=== PATIENT | female | born 1960 | race Caucasian/White ===

== ENCOUNTER → 2019-08-10 | Outpatient (CLI) | payer MEDICAID, SELFPAY ==
--- NOTE | 2019-08-10 20:18 | RAD_ITS ---
STUDY: X-RAY - CERVICAL SPINE REASON FOR EXAM: Female, 58 years old. FIBROMALAGIA. HX OF HERNIATED L5-S1 TECHNIQUE: 5 view(s) of the cervical spine were obtained. COMPARISON: None FINDINGS: Normal anterior atlantoaxial articulation. Normal odontoid process. Normal cervical lordosis. Normal vertebral bodies and endplates. Normal disc space heights. Normal visualized intervertebral neuroforamina. The soft tissue structures are unremarkable. RAD/Cerv Spine 4 or 5 Views IMPRESSION: Normal x-ray examination of the visualized cervical spine. Electronically Signed: Anamika Rodriguez, at 21:24 EST Tel , Service support ,
--- NOTE | 2019-08-10 20:19 | RAD_ITS ---
STUDY: X-RAY - PELVIS AND BILATERAL HIPS REASON FOR EXAM: Female, 58 years old. FIBROMALAGIA. HX OF HERNIATED L5-S1 TECHNIQUE: AP view of the pelvis.? 2 views of the right hip, and 2 views of the left hip were obtained. COMPARISON: None. FINDINGS: There is a non-specific bowel gas pattern. Normal visualized soft tissue structures. There are multiple calcified phleboliths. Normal bilateral iliac wings, sacroiliac joints and visualized sacrum. Normal bilateral superior and inferior pubic rami. Normal pubic symphysis. Normal bilateral ischial tuberosities. Normal visualized right femoral head. There is osteoarthritic spur formation of the right acetabular rim. There is mild articular joint space narrowing of the right hip. Normal visualized left femoral head. There is osteoarthritic spur formation of the left acetabular rim. There is mild articular joint space narrowing of the left hip. RAD/Hips B/L min 2 views w/ Pelvis IMPRESSION: Mild degenerative changes of the bilateral hips. Electronically Signed: Micheal Ward MD (Brooks) at 18:08 EST , Service support ,
--- NOTE | 2019-08-10 20:19 | RAD_ITS ---
STUDY: X-RAY - THORACIC SPINE REASON FOR EXAM: Female, 58 years old. Fibromyalgia. HX OF HERNIATED L5-S1 TECHNIQUE: 3 view(s) of the thoracic spine were obtained. COMPARISON: None. FINDINGS: Normal kyphosis of the thoracic spine. There is no substantial scoliosis. There is multilevel endplate spondylosis of the thoracic vertebrae. There is multilevel disc space narrowing of the thoracic spine. The soft tissue structures are unremarkable. RAD/Thoracic Spine 3 Views IMPRESSION: Degenerative disc disease and spondylosis. Electronically Signed: Micheal Ward MD (Brooks) at 18:09 EST , Service support ,
--- NOTE | 2019-08-10 20:20 | RAD_ITS ---
STUDY: X-RAY - LUMBAR SPINE REASON FOR EXAM: Female, 58 years old. FIBROMALAGIA. HX OF HERNIATED L5-S1 TECHNIQUE: 5 view(s) of the lumbar spine were obtained. COMPARISON: None FINDINGS: Normal lumbar lordosis. There is no substantial scoliosis. There is a normal alignment of the vertebrae. There is multilevel endplate spondylosis of the lumbar vertebrae. There is multi-level degenerative disc disease with multi-level disc space narrowing. There is no demonstrated fracture. There is no demonstrated spondylolysis of the pars interarticulares. There is atherosclerotic calcification of the abdominal aorta without a demonstrated aneurysm. Cholecystectomy clips are noted. RAD/L/S Spine Min 4 Views IMPRESSION: 1. Mild degenerative changes. Electronically Signed: Micheal Ward MD ([place]) at 18:08 EST , Service support ,
== END | disposition home or self-care (01) ==
LOC: RAD 20:15
PROVIDERS: PCP Nurse Practitioner Family; Referring Provider Anesthesiology; Visit Provider Anesthesiology
DX: M54.2 Cervicalgia (principal); M54.5 Low back pain; M54.6 Pain in thoracic spine; M25.551 Pain in right hip; M25.552 Pain in left hip
CPT/HCPCS: 72050; 72072; 72110; 73521

== ENCOUNTER → 2020-03-10 | Outpatient (CLI) | payer MEDICAID, SELFPAY ==
--- NOTE | 2020-03-10 18:11 | MRI_ITS ---
STUDY: MRI LUMBAR SPINE WITHOUT CONTRAST REASON FOR EXAM: Female, 59 years old. back pain x years into pelvis, back locking up TECHNIQUE: Standardized fat and water weighted pulse sequences were obtained in the sagittal and axial planes. COMPARISON: None FINDINGS: T12-L1: Normal endplates. Normal disc height, hydration and morphology. Normal bilateral facet joints. Normal central canal and bilateral lateral recesses. Normal bilateral intervertebral neural foramina. Normal lumbar lordosis. There is no substantial scoliosis. Normal conus medullaris that terminates at the L1-2: Normal endplates. Normal disc height, hydration and morphology. Normal bilateral facet joints. Normal central canal and bilateral lateral recesses. Normal bilateral intervertebral neural foramina. L2-3: Normal endplates. Normal disc height, hydration and morphology. Normal bilateral facet joints. Normal central canal and bilateral lateral recesses. Normal bilateral intervertebral neural foramina. L3-4: Normal endplates. Normal disc height, hydration and morphology. Normal bilateral facet joints. Normal central canal and bilateral lateral recesses. Normal bilateral intervertebral neural foramina. L4-5: Endplate spondylosis. Small midline disc herniation. Degenerative changes of the bilateral facet joints. Mild narrowing of the central canal and bilateral intervertebral neural foramina. L5-S1: Endplate spondylosis. Decreased disc height and small circumferential disc bulge. Degenerative changes of the bilateral facet joints. Mild narrowing of the central canal and bilateral intervertebral neural foramina. Normal visualized sacral ala. Normal visualized paraspinous soft tissue structures. MRI/Spine Lumbar (Routine) IMPRESSION: L4-5 and L5-S1 degenerative changes, as described above. Electronically Signed: Hazel San, at 14:50 EDT Tel , Service support ,
== END | disposition home or self-care (01) ==
LOC: MRI 17:20
PROVIDERS: PCP Nurse Practitioner Family; Referring Provider Anesthesiology; Visit Provider Anesthesiology
DX: M54.16 Radiculopathy, lumbar region (principal)
CPT/HCPCS: 72148

== ENCOUNTER → 2020-12-26 18:48 | Outpatient (CLI) | payer MEDICAID, SELFPAY ==
--- NOTE | 2020-12-26 19:10 | RAD_ITS ---
STUDY: X-RAY - LEFT KNEE REASON FOR EXAM: Female, 60 years old. PAIN TECHNIQUE: 3 view(s) of the knee. COMPARISON: None. FINDINGS: Normal visualized distal femur. Normal visualized proximal tibia and fibula. Normal proximal tibiofibular articulation. There is mild degenerative arthrosis of the medial femorotibial compartment. There is mild degenerative arthrosis of the lateral femorotibial compartment. There is mild degenerative arthrosis of the patellofemoral articulation. The soft tissue structures are unremarkable. RAD/Knee 4 or More Views IMPRESSION: Degenerative arthrosis. Electronically Signed: Triston La MD at 10:47 EDT Tel , Service support ,
--- NOTE | 2020-12-26 19:10 | RAD_ITS ---
STUDY: X-RAY - RIGHT KNEE REASON FOR EXAM: Female, 60 years old. PAIN SEE LEFT KNEE IMAGES FOR PATELLA VIEW. PHYSICIAN REQUESTED MERCHANT VIEW WHICH IS BOTH PATELLAS DONE TOGETHER. TECHNIQUE: 4 view(s) of the knee. COMPARISON: None. FINDINGS: Normal visualized distal femur. Normal visualized proximal tibia and fibula. Normal proximal tibiofibular articulation. There is moderate degenerative arthrosis of the medial femorotibial compartment with moderate joint space narrowing. There is mild degenerative arthrosis of the lateral femorotibial compartment. There is mild degenerative arthrosis of the patellofemoral articulation. There is a soft tissue prominence in the suprapatellar region suggesting a small volume joint effusion. The soft tissue structures are unremarkable. RAD/Knee 4 or More Views IMPRESSION: Degenerative arthrosis. Electronically Signed: Triston La MD at 10:49 EDT Tel , Service support ,
== END ==
PROVIDERS: PCP Nurse Practitioner Family; Visit Provider Anesthesiology
DX: M25.561 Pain in right knee (principal); M25.562 Pain in left knee
CPT/HCPCS: 73564

== ENCOUNTER 2021-03-27 10:30 | Outpatient (RCR) | payer MEDICAID, SELFPAY ==
--- NOTE | 2021-01-05 12:07 | HP.PTEVAL ---
Patient's Visit Information VINH BEY is a 60 year old F referred to Physical Therapy by Dr. Srini Quintana MD with a diagnosis of Back pain and B knee pain. Date of Evaluation: 01/05/21 Physical Therapist: Reyes Nowak DPT - Visit Plan Frequency: 2x /Week Duration: 4 Weeks Plan: Start with B hip/core strengthening and increasing tolerance to all functional mobility in aquatic setting. Add in lumbar ROM as tolerated. I would like her to start a walking program, but might have to be light due to limited overall tolerance to functional mobility. Stress graded exercises and HEP to patient. - Subjective Pt. is here today for her initial evaluation with diagnosis of back pain and knee pain. Pt. reports having pain for ~2 years, but has been progressively getting worse. She reports being diagnosed with fibromyalgia for about the same time. She was taking Cymbalta, but did not report much change. She reports having increased pain in B hips, B knee and lumbar spine. Pt. increased pain: standing, walking, driving. Decreased: not much. She reports taking Tylenol for pain, but was taking so much that she was having issues internally. She is not taking tramadol, but is only taking the edge. Pt. to see her physician on Tuesday and do injection into lumbar spine then followed by B knees. Pt. has had relief for about 6 weeks with her injections. Pt. reports her normal day is getting up early secondary to pain. She drives people for a living. She life is mostly sitting at this point in time. Pt. reports trying therapy previously. - Pain Lumbar spine Pain Intensity (Out of 10): 9 Pain Intensity Range: 4, 10 B hip Pain Intensity (Out of 10): 7 Pain Intensity Range: 4, 10 B knees Pain Intensity (Out of 10): 8 Pain Intensity Range: 2, 10 - Objective POSTURE: Pt. has general flexed posture. Pt. is over wt. Pt. has wide CRISTIANO in stance, and increased anterior pelvic tilt. PALPATION: Pt. has increased pain with palpation of R knee and R distal HS. NEURO: Pt. reports no N/T currently. She reports increased N/T in her L side of her hip when lying on her R side. ROM: Lumbar spine: flexion min/nil loss increase NW, ext- max loss increase NW, Rotation: mod loss increase NW, SB mod loss increase NW. MMT: RLE: ankle 5/5 throughout; knee- 4/5 increase NW, flexion 4+/5 increase NW; hip: flexion 3/5, abd 3/5, ext 4/5. LLE: ankle 5/5 throughout; knee: ext 4/5, flexion 4/5; hip- flexion 4/5, abd 4/5, ext 4/5. Core strength- poor-. GAIT: Pt. is able to ambulate without AD. She has increased lateral postural sway. She has increased R trunk rotation to increase hip movement. Pt. lacks TKE of R knee in stance. Pt. has antalgic pattern during R stance phase. Pt. has anterior pelvic tilt with increased lumbar lordosis with gait. STAIRS: step to pattern loading LLE only and use of BHR. - Special Tests Lumbar Standing: Flexion - Mechanical Response: No effect Lumbar Standing: Flexion - Symptoms During Testing: Increases Lumbar Standing: Flexion - Symptoms After Testing: No worse Lumbar Standing: Extension - Mechanical Response: No effect Lumbar Standing: Extension - Symptoms During Testing: Increases Lumbar Standing: Extension - Symptoms After Testing: Worse Lumbar Standing: Right Side Glides - Mechanical Response: No effect Lumbar Standing: Right Side [place] - Symptoms During Testing: Increases Lumbar Standing: Right Side [place] - Symptoms After Testing: Worse Lumbar Standing: Left Side [place] - Mechanical Response: No effect Lumbar Standing: Left Side [place] - Symptoms During Testing: Increases Lumbar Standing: Left Side [place] - Symptoms After Testing: Worse - Balance/Special Test Scores Oswestry Low Back Score: 39 - Goals Goal 1:: LTG: Pt. to be I with HEP. Goal Time Frame: 4-6 Weeks Goal 2:: STG: pt. to be able to walk short distances <300' with 0-4/10 pain in B hips, knees and lumbar spine. Goal Time Frame: 2-4 Weeks Goal 3:: LTG: Pt. to ambulate 100'with 0-4/10 in B hips, knees and lumbar spine allowing for increased tolerance with walking in community and shopping. Goal Time Frame: 4-6 Weeks Goal 4:: LTG: Pt. to have increased lumbar spine ROM 25% in all directions 0-4/10 pain. Goal Time Frame: 4-6 Weeks Goal 5:: LTG: Pt. to sleep 6+ hours at one time allowing for increased quality of life. Goal Time Frame: 4-6 Weeks Goal 6:: LTG: Pt. to have increased BLE and core strength increased to at least 4+/5 throughout. Goal Time Frame: 4-6 Weeks - Rehabilitation Potential Physical Therapy Diagnosis: Pt. has signs and symptoms consistent with low back pain and B knee pain with R being worse than L. Pt. has marked hypomobility, weakness, increased pain, difficulty with walking, difficulty doing work related activities. Pt. would benefit from PT to work on strength, ROM, gait progression initially in aquatic setting with focus on progressing tolerance to general daily activities. Rehabilitation Potential: Good - Anticipated Interventions Patient/Client Instruction: Educate patient on: Condition, Plan of Care, Risk Factors, Benefits of Fitness Program For the Purpose of:: To improve decision making, To facilitate caregiver knowledge, To improve self management, To prevent re-injury, To improve ability to perform tasks related to life management Therapeutic Exercise to Include: Strength training, Power training, Coordination, Postural training, Flexibilty training, Gait and locomotor training, In an aquatic setting, Passive ROM, Active ROM, Dynamic Lumbar Stabilization, Gissell Exercises For the Purpose of:: To decrease pain, To decrease swelling/inflammation, To increase ROM, To improve nutrient delivery to tissue, To increase oxygenation perfusion, To improve muscle performance and motor function, To improve ability to perform ADL's, To increase tolerance to activity/condition/position, To improve health of tissue, To decrease soft tissue restriction, To increase flexibility/ROM, To improve endurance, To improve balance Thank you for the opportunity to evaluate your patient. For Medicare and Medicare HMO plans, please review the plan of care and approve it. It will need to be FAXED BACK to us at [phone] for Medicare purposes. For Medicare only, by signing this I certify the plan of care. Please let me know if there are questions or concerns regarding this plan of care. Physician Signature: Date:
--- NOTE | 2021-04-16 09:02 | HP.PTREVAL_ITS ---
Dr. Srini Quintana MD, It has been my pleasure to treat VINH BEY over the last 10 visits for Back pain and B knee pain. Please see the progress note below for an update on the physical therapy plan of care! Subjective: Pt reports bilateral knee pain R> L . She c/o significant swelling in both legs, and states pain is off the charts. Pt reports pain is getting worse, and believes she needs to do pool therapy 3x/ week. She states her LBP has been occurring for about 22 years, her knees have been painful for the past 5 years ever since she had a fall. Objective/Function: STRENGTH: RIGHT: hip: flexion 3+, abduction 4, adduction 4 ,knee: flexion 3+ (limited by pain), extension 4- (limited by pain) LEFT: hip flexion 4-, abduction 4, adduction 4 , knee :flexion 4-, extension 4+. ROM: Right knee AROM: 0-10-90 , PROM 0-100, , LEFT knee AROM 10-0-115, PROM 0- 125. Pt experienced pain during ROM and MMT, but expressed that after ROM she felt some pain relief. Pt expressed her physician recommended her to lose weight to help with pain management, pt continues to demonstrate weakness and lack of ROM and would benefit from further physical therapy to increase ROM and strength as well as education on pain management techniques. Look to increase walking program and graded exercise to increase tolerance to functional daily activities. Plan Plan: We are looking to extend her date limit of visits and alternate pool therapy with land therapy 2x a week for 6 weeks. Balance/Gait/Functional tests - Balance/Special Test Scores Oswestry Low Back Score: 39 Lower Extremity Functional Score: 14 Goals Goal 1:: LTG: Pt. to be I with HEP. Goal Time Frame: 4-6 Weeks Goal Progress: Goal Met Goal 2:: STG: pt. to be able to walk short distances <300' with 0-4/10 pain in B hips, knees and lumbar spine. Goal Time Frame: 2-4 Weeks Goal Progress: Not Progressing Goal 3:: LTG: Pt. to ambulate 100'with 0-4/10 in B hips, knees and lumbar spine allowing for increased tolerance with walking in community and shopping. Goal Time Frame: 4-6 Weeks Goal Progress: Not Progressing Goal 4:: LTG: Pt. to have increased lumbar spine ROM 25% in all directions 0- 4/10 pain. Goal Time Frame: 4-6 Weeks Goal Progress: Not Progressing Goal 5:: LTG: Pt. to sleep 6+ hours at one time allowing for increased quality of life. Goal Time Frame: 4-6 Weeks Goal Progress: Not Progressing Goal 6:: LTG: Pt. to have increased BLE and core strength increased to at least 4+/5 throughout. Goal Time Frame: 4-6 Weeks Goal Progress: Not Progressing Anticipated Interventions Patient/Client Instruction: Educate patient on: Condition, Plan of Care, Risk Factors, Benefits of Fitness Program For the Purpose of:: To improve decision making, To facilitate caregiver knowledge, To improve self management, To prevent re-injury, To improve ability to perform tasks related to life management Therapeutic Exercise to Include: Strength training, Power training, Coordination, Postural training, Flexibilty training, Gait and locomotor training, In an aquatic setting, Passive ROM, Active ROM, Dynamic Lumbar Stabilization, Gissell Exercises For the Purpose of:: To decrease pain, To decrease swelling/inflammation, To increase ROM, To improve nutrient delivery to tissue, To increase oxygenation perfusion, To improve muscle performance and motor function, To improve ability to perform ADL's, To increase tolerance to activity/condition/position, To improve health of tissue, To decrease soft tissue restriction, To increase flexibility/ROM, To improve endurance, To improve balance Manual Therapy Techniques to Include: Mobilization For the Purpose of:: To decrease pain, To increase ROM TENS: Yes Thermo therapy (hot pack): Yes Please do not hesitate to contact me at [phone] by phone or if you have questions or concerns regarding this new plan of care! Sincerely, Reyes Nowak DPT
--- NOTE | 2021-05-19 12:56 | HP.PTDCNRP_ITS ---
VINH BEY was seen in my office for initial evaluation on 01/05/21. The following Plan of Care was established for this patient: Initial Frequency: 2x /Week Initial Duration: 4 Weeks Patient/Client Instruction: Educate patient on: Condition, Plan of Care, Risk Factors, Benefits of Fitness Program For the Purpose of:: To improve decision making, To facilitate caregiver knowledge, To improve self management, To prevent re-injury, To improve ability to perform tasks related to life management Therapeutic Exercise to Include: Strength training, Power training, Coordination, Postural training, Flexibilty training, Gait and locomotor training, In an aquatic setting, Passive ROM, Active ROM, Dynamic Lumbar Stabilization, Gissell Exercises For the Purpose of:: To decrease pain, To decrease swelling/inflammation, To increase ROM, To improve nutrient delivery to tissue, To increase oxygenation perfusion, To improve muscle performance and motor function, To improve ability to perform ADL's, To increase tolerance to activity/condition/position, To improve health of tissue, To decrease soft tissue restriction, To increase flexibility/ROM, To improve endurance, To improve balance Manual Therapy Techniques to Include: Mobilization For the Purpose of:: To decrease pain, To increase ROM TENS: Yes Thermo therapy (hot pack): Yes This patient was last seen in our office 03/27/21. Pertinent comments regarding their Physical therapy will appear below: Pt. was seen in PT in aquatic therapy for her back, leg pain. Pt. was to extend her POC, but has not returned to PT. Pt. will be DC from PT at this point in time. At this point I will be discontinuing this patient from physical therapy. I wou ld be happy to see this patient again in the future if found appropriate by the physician. Thank you! Reyes Nowak, DPT Balance/Gait/Functional tests - Balance/Special Test Scores Oswestry Low Back Score: 39 Lower Extremity Functional Score: 14
== END 2021-03-27 19:00 | disposition home or self-care (01) ==
LOC: PT 10:30
PROVIDERS: PCP Nurse Practitioner Family; Referring Provider Anesthesiology; Visit Provider Anesthesiology
DX: M54.9 Dorsalgia, unspecified (principal); M25.562 Pain in left knee; M25.561 Pain in right knee
CPT/HCPCS: 97113; 97161; 97164

== ENCOUNTER → 2021-05-22 11:19 | Outpatient (CLI) | payer MEDICAID, SELFPAY ==
--- NOTE | 2021-05-22 11:23 | RAD_ITS ---
STUDY: X-RAY - PELVIS AND RIGHT HIP REASON FOR EXAM: Female, 60 years old. Right hip pain. TECHNIQUE: 3 views of the pelvis and hip. COMPARISON: 08/10/2019. FINDINGS: There is a non-specific bowel gas pattern. Phleboliths. Normal bilateral iliac wings, sacroiliac joints and visualized sacrum. Normal bilateral superior and inferior pubic rami. Normal pubic symphysis. Normal bilateral ischial tuberosities. Stable mild medial arthrosis of both hips. RAD/HIP, UNI W/ Pelvis 2-3 Views IMPRESSION: Stable mild medial arthrosis of both hips. No acute finding. Electronically Signed: Jerome Mccain MD at 13:53 EST , Service support ,
== END ==
PROVIDERS: PCP Nurse Practitioner Family; Referring Provider Anesthesiology; Visit Provider Anesthesiology
DX: M16.0 Bilateral primary osteoarthritis of hip (principal)
CPT/HCPCS: 73502

== ENCOUNTER 2021-08-10 08:47 | Outpatient (CLI) | payer MEDICAID, SELFPAY ==
--- NOTE | 2021-08-10 08:48 | MRI_ITS ---
STUDY: MRI RIGHT KNEE REASON FOR EXAM: Female, 60 years old. Bilateral knee pain. TECHNIQUE: Standardized fat and water weighted pulse sequences were obtained in all 3 orthogonal planes. COMPARISON: Radiographs of the right knee dated 12/26/2020. FINDINGS: Complex tear of the body of the medial meniscus with truncation and loss of substance. Extrusion of the remnant of the body and anterior horn of the medial meniscus (coronal series 6 images 8-18). Moderate loss of articular cartilage of the medial femorotibial compartment with reactive subchondral bone marrow edema and osteophyte formation (coronal series 6 images 7-17). Mild MCL sprain (coronal series 6 images 9-12). Normal distal semimembranosus, gracilis and semitendinosus tendons. Normal lateral meniscus. Mild thinning of the articular cartilage of the lateral femorotibial compartment (coronal series 6 images 7-14). Normal lateral femoral condyle and tibial plateau. Normal proximal tibiofibular articulation. Normal lateral collateral (fibular) ligament. Normal popliteus tendon. Normal biceps femoris tendon. Normal anterior cruciate ligament (ACL). Normal posterior cruciate ligament (PCL). Lateral tilt and subluxation of the patella with moderate to marked thinning of the articular cartilage of the patellofemoral compartment with reactive subchondral bone marrow edema, subchondral cyst formation and osteophyte formation (axial series 2 images 10-18). Normal medial and lateral patellar retinaculum. Normal quadriceps tendon. Normal patellar tendon. Normal Hoffa''s fat pad. Joint effusion with medial plica and dissecting popliteal cyst (axial series 2 images 8-21 sagittal series 4 image 19). Prepatellar subcutaneous soft tissue edema (sagittal series 4 images 7-13). The otherwise visualized osseous structures are unremarkable. MRI/Lower Ext Joint Only (Routine) IMPRESSION: Complex tear of the body of the medial meniscus with truncation and loss of substance. Extrusion of the remnant of the body and anterior horn of the medial meniscus. Mild MCL sprain. Mild thinning of the articular cartilage of the lateral femorotibial compartment. Lateral tilt and subluxation of the patella. Moderate to marked thinning of the articular cartilage of the patellofemoral compartment. Marked prepatellar subcutaneous soft tissue edema. Joint effusion with medial plica. Small dissecting popliteal cyst. Electronically Signed: Jerome Mccain MD at 12:48 EST ,
--- NOTE | 2021-08-10 09:04 | MRI_ITS ---
STUDY: MRI LEFT KNEE REASON FOR EXAM: Female, 60 years old. Diffuse knee pain with instability. TECHNIQUE: Standardized fat and water weighted pulse sequences were obtained in all 3 orthogonal planes. COMPARISON: Knee images dated 12/26/2020. FINDINGS: Normal medial meniscus. Mild thinning of the articular cartilage of the medial femorotibial compartment with small osteophytes (coronal series 6 images 8-17). Mild MCL sprain (coronal series 6 image 13). Normal distal semimembranosus, gracilis and semitendinosus tendons. Normal lateral meniscus. Moderate thinning of the articular cartilage of the lateral femorotibial compartment with osteophyte formation (coronal series 6 images 8-15). Normal proximal tibiofibular articulation. Normal lateral collateral (fibular) ligament. Normal popliteus tendon. Normal biceps femoris tendon. Normal anterior cruciate ligament (ACL). Normal posterior cruciate ligament (PCL). Lateral tilt and subluxation of the patella with marked thinning of the articular cartilage of the patellofemoral compartment with reactive subchondral bone marrow edema, subchondral cyst formation and osteophyte formation (axial series 2 images 11-18). Normal medial and lateral patellar retinaculum. Normal quadriceps tendon. Normal patellar tendon. Normal Hoffa''s fat pad. Moderate-sized joint effusion with dissecting popliteal cyst (axial series 2 images 8-22). Prepatellar subcutaneous soft tissue edema (sagittal series 4 images 10-17). The otherwise visualized osseous structures are unremarkable. MRI/Lower Ext Joint Only (Routine) IMPRESSION: Mild thinning of the articular cartilage of the medial femorotibial compartment. Mild MCL sprain. Moderate thinning of the articular cartilage of the lateral femorotibial compartment. Lateral tilt and subluxation of the patella with marked thinning of the articular cartilage of the patellofemoral compartment. Prepatellar subcutaneous soft tissue edema. Moderate-sized joint effusion with dissecting popliteal cyst. Electronically Signed: Jerome Mccain MD at 12:43 EST ,
== END 2021-08-10 23:59 | disposition home or self-care (01) ==
LOC: MRI 08:48
PROVIDERS: PCP Nurse Practitioner Family; Referring Provider Orthopaedic Surgery; Visit Provider Orthopaedic Surgery
DX: M25.561 Pain in right knee (principal); M25.562 Pain in left knee
CPT/HCPCS: 73721